=== PATIENT | female | born 1950 | race Caucasian/White ===

== ENCOUNTER 2016-09-12 14:17 | Emergency (ER) | payer OTHER ==
--- NOTE | 2016-09-12 16:50 | UC ---
Complaint Female HPI - HPI Summary HPI Summary: ONE WEEK OF URINARY PRESSURE, FREQUENCY, URGENCY. NO FEVER. NO BACK PAIN. NO ABDOMINAL PAIN - History Of Current Complaint Chief Complaint: UC Stated Complaint: UTI COMPLAINT Time Seen by Provider: 09/12/16 16:00 Hx Obtained From: Patient Hx Last Menstrual Period: menopausal Onset/Duration: Gradual Onset, Lasting Days, Still Present, Worse Since - TODAY Severity Initially: Mild Severity Currently: Moderate Pain Intensity: 0 Pain Scale Used: 0-10 Numeric Character: Dull, Burning Aggravating Factor(s): Urination Alleviating Factor(s): Nothing Associated Signs And Symptoms: Negative: Fever, Back Pain, Nausea, Vomiting(# Of Episodes =) - Risk Factors Ectopic Risk Factor: Negative Ovarian Torsion Risk Factor: Negative - Allergies/Home Medications Allergies/Adverse Reactions: Allergies Allergy/AdvReac Type Severity Reaction Status Date / Time No Known Allergies Allergy Verified 09/12/16 16:13 Home Medications: Home Medications Multiple Vitamins W/ Minerals [Multivitamin Adults] 1 tab 09/12/16 [History] [place]-3 Fatty Acids [Fish Oil] 1,000 mg PO 09/12/16 [History] PMH/Surg Hx/FS Hx/Imm Hx Previously Healthy: Yes Endocrine History Of: Denies: Diabetes, Thyroid Disease Cardiovascular History Of: Denies: Cardiac Disorders, Hypertension Respiratory History Of: Denies: COPD, Asthma GI/ History Of: Denies: Ulcer - Surgical History Surgical History: Yes Surgery Procedure, Year, and Place: tubal ligation 30 years ago - Family History Known Family History: Negative: Renal Disease - Social History Lives: With Family Alcohol Use: None Substance Use Type: None Smoking Status (MU): Never Smoked Tobacco Review of Systems Constitutional: Negative Skin: Negative Eyes: Negative ENT: Negative Respiratory: Negative Cardiovascular: Negative Gastrointestinal: Negative Genitourinary: Dysuria, Frequency, Urgency Motor: Negative Neurovascular: Negative Musculoskeletal: Negative Neurological: Negative Psychological: Negative All Other Systems Reviewed And Are Negative: Yes Physical Exam Triage Information Reviewed: Yes Appearance: Well-Appearing, Well-Nourished, Pain Distress - MILD Vital Signs: Initial Vital Signs Temp 98.0 F 09/12/16 16:07 Pulse 87 09/12/16 16:07 Resp 16 09/12/16 16:07 BP 147/76 09/12/16 16:07 Pulse Ox 98 09/12/16 16:07 Vital Signs Reviewed: Yes Eye Exam: Normal ENT Exam: Normal ENT: Positive: Normal ENT inspection, Hearing grossly normal, TMs normal Dental Exam: Normal Neck exam: Normal Neck: Positive: Supple, Nontender, No Lymphadenopathy Respiratory Exam: Normal Respiratory: Positive: Chest non-tender, Lungs clear, Normal breath sounds, No respiratory distress, No accessory muscle use Cardiovascular Exam: Normal Cardiovascular: Positive: RRR, No Murmur, Pulses Normal, Brisk Capillary Refill Abdominal Exam: Normal Abdomen Description: Positive: Nontender, No Organomegaly, Soft. Negative: CVA Tenderness (R), CVA Tenderness (L) Musculoskeletal Exam: Normal Neurological Exam: Normal Psychological Exam: Normal Skin Exam: Normal Complaint Female Dx - Differential Dx/Diagnosis Differential Diagnosis/HQI/PQRI: Ureteral Stone, Urinary Tract Infection Provider Diagnoses: URINARY TRACT INFECTION Discharge - Discharge Plan Condition: Stable Disposition: HOME Prescriptions: Fluconazole [Diflucan 150 MG (NF)] 150 mg PO ONCE #1 tab Phenazopyridine TAB* [Pyridium TAB*] 100 mg PO TID #15 tab Sulfamethox/Trimethoprim DS* [Bactrim DS 800/160 TAB*] 1 tab PO BID #10 tab Patient Education Materials: Urinary Tract Infection in Women (ED) Referrals: Non Staff,Doctor [Primary Care Provider] -
== END 2016-09-12 16:40 | disposition home or self-care (01) ==
LOC: UCEAST 14:17
DX: N39.0 Urinary tract infection, site not specified (principal); R03.0 Elevated blood-pressure reading, without diagnosis of hypertension
CPT/HCPCS: 81002; 87086; 99202; G0463

== ENCOUNTER 2016-09-14 09:15 | Emergency (ER) | payer OTHER ==
[2016-09-14 09:42] VITALS: BP 130/70
--- NOTE | 2016-09-14 11:01 | UC ---
Complaint Female HPI - History Of Current Complaint Chief Complaint: [facility] Stated Complaint: itching Time Seen by Provider: 09/14/16 10:50 Hx Obtained From: Patient Hx Last Menstrual Period: menopausal Onset/Duration: Gradual Onset - has had burning in vaginal area and when she urinates over past 1 week. Was seen here 2 days ago and dx UTI, Rx;d Bactrim. she took 2 doses bactrinm and stopped because it gave her a headache. now burniong in vaginal area is worse. she is using Vagisil OTC w/o relief Timing: Constant Severity Initially: Mild Severity Currently: Moderate Character: Burning - an all the time, worse when urinating Aggravating Factor(s): Urination Alleviating Factor(s): Nothing Associated Signs And Symptoms: Positive: Genital Swelling - feels swollen "down there". has not looked to see if red. Negative: Fever, Back Pain, Vaginal Bleeding/Discharge, Vaginal Discharge, Genital Blisters - Allergies/Home Medications Allergies/Adverse Reactions: Allergies Allergy/AdvReac Type Severity Reaction Status Date / Time No Known Allergies Allergy Verified 09/12/16 16:13 PMH/Surg Hx/FS Hx/Imm Hx Previously Healthy: Yes Endocrine History Of: Denies: Diabetes, Thyroid Disease Cardiovascular History Of: Denies: Cardiac Disorders, Hypertension Respiratory History Of: Denies: COPD, Asthma GI/ History Of: Denies: Ulcer Psychological History Of: Denies: Anxiety, Depression - Surgical History Surgical History: Yes Surgery Procedure, Year, and Place: tubal ligation 30 years ago - Family History Known Family History: Negative: Renal Disease - Social History Occupation: Retired Lives: With Family Alcohol Use: None Substance Use Type: None Smoking Status (MU): Never Smoked Tobacco Review of Systems Constitutional: Negative Respiratory: Negative Cardiovascular: Negative Genitourinary: Other - only an after urination Neurological: Negative Psychological: Negative All Other Systems Reviewed And Are Negative: Yes Physical Exam Triage Information Reviewed: Yes Appearance: Well-Appearing, No Pain Distress, Well-Nourished Vital Signs: Initial Vital Signs Temp 98.8 F 09/14/16 09:34 Pulse 82 09/14/16 09:34 Resp 15 09/14/16 09:34 BP 130/70 09/14/16 09:34 Pulse Ox 98 09/14/16 09:34 Vital Signs Reviewed: Yes Respiratory Exam: Normal Cardiovascular Exam: Normal Cardiovascular: Positive: RRR Abdominal Exam: Normal Abdomen Description: Positive: Nontender, No Organomegaly, Soft, Other: - pt declines pelvic exam and would like to try diflucan first. Negative: CVA Tenderness (R), CVA Tenderness (L), Guarding, McBurney's Point Tenderness, Peritoneal Signs Bowel Sounds: Positive: Present Neurological Exam: Normal Psychological Exam: Normal Skin Exam: Normal Complaint Female Dx - Differential Dx/Diagnosis Differential Diagnosis/HQI/PQRI: Sexually Transmitted Disease, Urinary Tract Infection, Other - vaginal yeast, BV Provider Diagnoses: Vaginitis Discharge - Discharge Plan Condition: Good Disposition: HOME Prescriptions: Fluconazole [Diflucan 150 MG (NF)] 150 mg PO ONCE #2 tab Patient Education Materials: Vulvovaginal Candidiasis (ED) Referrals: Non Staff,Doctor [Primary Care Provider] - Additional Instructions: Use the fluconazole as directed If you are no better in 1 week, please return for recheck
== END 2016-09-14 11:22 | disposition home or self-care (01) ==
LOC: UCEAST 09:15
DX: N76.0 Acute vaginitis (principal); Z87.440 Personal history of urinary (tract) infections
CPT/HCPCS: 99202; G0463